=== PATIENT | female | born 2000 | race Caucasian/White ===

== ENCOUNTER 2022-09-27 00:56 | Inpatient (IN) | payer OTHER ==
[2022-09-27 01:23] VITALS: BMI 32.3
[2022-09-27 03:01] LABS: Hemoglobin 11.7 g/dL (12.0-15.5); Mean Corpuscular HGB CONC 32.9 g/dL (32.0-36.0); Mean Corpuscular Hemoglobin 27.5 pg (27.0-33.0); Mean Corpuscular Volume 83.8 fl (81.6-98.3); Mean Platelet Volume 9.8 fl (7.4-10.4); Platelet Count 290 10x3/uL (150-450); RBC Distribution Width 13.5 % (11.5-14.5); Red Blood Cell (RBC) Count 4.25 10x6/uL (3.90-5.03); White Blood Cell (WBC) Count 13.6 10x3/uL (3.5-10.5)
[2022-09-27 03:25] LABS: HBSAg Index 0.12 S/CO (0-0.99); Hep B Surf Ag Non-Reactive S/CO (NonReactive)
[2022-09-27 03:26] LABS: Syphilis Antibody Nonreactive (Nonreactive); Syphilis Antibody Index 0.03 S/CO (<1.00 Non-Reactive)
[2022-09-27] MEDS ORDERED: Fentanyl 2 mcg/Bup 0.1% Cadd 100 ML ONE (04:16)
[2022-09-27] MEDS ORDERED: Fentanyl 100 MCG/2 ML VIAL ONE (05:01)
[2022-09-27] MEDS ORDERED: Ondansetron PF 4 MG/2 ML Vial ONE (05:35)
[2022-09-27] MEDS ORDERED: Moisturizing Cream (Eucerin) 113 GM JAR TOP PRN (05:44)
[2022-09-27] MEDS ORDERED: Lactated Ringer's 500 ML IV PRN (05:44)
[2022-09-27] MEDS ORDERED: ePHEDrine Sulfate 50 MG/10 ML VIAL SLOW IVP PRN (05:44)
[2022-09-27] MEDS ORDERED: diphenhydrAMINE 50 MG/ML VIAL IVP PRN (05:44)
[2022-09-27] MEDS ORDERED: Ondansetron PF 4 MG/2 ML Vial IVP PRN (05:44)
[2022-09-27] MEDS ORDERED: Naloxone HCl 0.4 mg/ml Vial IVP PRN ×2 (05:44)
[2022-09-27] MEDS ORDERED: Promethazine HCl 25 MG/ML VIAL IM PRN (05:44)
[2022-09-27] MEDS ORDERED: Acetaminophen 325 MG TAB PO PRN (05:44)
[2022-09-27] MEDS ORDERED: Fentanyl 2 mcg/Bupivacaine 0.1% Cassette 100 ML EPIDURAL SCH (05:45)
[2022-09-27] MEDS ORDERED: Communication Order-Pharmacy FS SCH (05:45)
[2022-09-27] MEDS ORDERED: Bupivacaine HCl 0.5%/Epinephrine 1:200,000/PF 30 ml Vial ONE (08:00)
[2022-09-27] MEDS ORDERED: NS w/ Oxytocin 30 units 500 ML ONE (09:30)
[2022-09-27] MEDS ORDERED: Butorphanol Tartrate 1 MG/ML VIAL ONE (09:43)
[2022-09-27] MEDS ORDERED: Misoprostol 200 MCG TAB ONE (09:45)
[2022-09-27] MEDS ORDERED: Butorphanol Tartrate 1 MG/ML VIAL SLOW IVP SCH (11:45)
[2022-09-27] MEDS ORDERED: Misoprostol 200 MCG TAB PR SCH (12:00)
[2022-09-27] MEDS ORDERED: Ibuprofen 800 MG TAB PO SCH (21:15)
[2022-09-28] MEDS ORDERED: Benzocaine-Menthol 82.5 ML CAN TOP PRN (00:43)
[2022-09-28] MEDS ORDERED: Milk Of Magnesia 30 ML UDCUP PO PRN (00:43)
[2022-09-28] MEDS ORDERED: Boostrix 0.5 ML (Tdap) VIAL (>/=7 yrs of age) IM ONE (00:43)
[2022-09-28] MEDS ORDERED: HYDROcodone/Acetaminophen 5/325 mg Tablet PO PRN ×2 (00:43)
[2022-09-28] MEDS ORDERED: Lanolin Ointment 7 GM TUBE TOP PRN (00:43)
[2022-09-28] MEDS ORDERED: Bisacodyl 10 MG SUPP PR PRN (00:43)
[2022-09-28] MEDS ORDERED: hydrALAZINE 20 MG/ML VIAL SLOW IVP PRN (00:43)
[2022-09-28] MEDS ORDERED: Ibuprofen 800 MG TAB PO SCH ×2 (06:00)
[2022-09-28 07:49] VITALS: BP 109/62; TEMP 98.2
[2022-09-28] MEDS ORDERED: Ferrous Sulfate 325 MG TAB PO SCH (08:00)
[2022-09-28] MEDS: CEFAZOLIN 2 GM in Sodium Chloride 0.9% 100 ML IVPB SCH ×2 (08:09→08:20)
[2022-09-28] MEDS ORDERED: Docusate 100 MG CAP PO SCH (09:00)
[2022-09-28] MEDS ORDERED: Prenatal Vitamin 1 TAB PO SCH (09:00)
== END 2022-09-28 15:05 | disposition home or self-care (01) | DRG 807 ==
LOC: CSHLD/OP 00:56 → CSHLD 08:27 → CSHPED 13:00
PROVIDERS: ADMIT Obstetrics & Gynecology; ATTEND Obstetrics & Gynecology
PROC: 10E0XZZ Delivery of Products of Conception, External Approach (ICD-10-PCS; principal; 2022-09-27)
PROC: 10D17Z9 Manual Extraction of Products of Conception, Retained, Via Natural or Artificial Opening (ICD-10-PCS; 2022-09-27)
PROC: 3E0334Z Introduction of Serum, Toxoid and Vaccine into Peripheral Vein, Percutaneous Approach (ICD-10-PCS; 2022-09-27)
DX: O26.893 Other specified pregnancy related conditions, third trimester (principal); Z37.0 Single live birth; Z67.41 Type O blood, Rh negative; Z3A.40 40 weeks gestation of pregnancy
CPT/HCPCS: 36415; 51702; 85027; 85461; 86780; 86850; 86870; 86900; 86901; 87340; 90384; 96372; 99285; J0595; J2405; J2590; J3010; J3490

== ENCOUNTER 2022-10-14 01:13 | Emergency (ER) | payer OTHER | END 2022-10-14 02:56 | disposition home or self-care (01) | LOC: CSHERS 01:13 | DX: O72.1 Other immediate postpartum hemorrhage (principal) | CPT/HCPCS: 99283 ==